=== PATIENT | female | born 1985 | race Caucasian/White ===

== ENCOUNTER 2021-03-18 12:37 | Inpatient (IN) | payer MEDICAID, SELFPAY ==
--- NOTE | ~2021-03-18 | CT_ITS ---
EXAMINATION: CT abdomen pelvis w con DATE: 03/18/2021 14:16 INDICATION: Abdominal pain TECHNIQUE: Computed tomography (CT) of the abdomen and pelvis was performed with 100 mL Omnipaque-350 intravenous contrast. Automated exposure control and iterative reconstruction technique were employe d. The dose-length product was 265.53 mGy-cm. COMPARISON: None FINDINGS: Lung bases are clear. Heart size is normal. No pericardial or pleural effusion. Small sliding-type hi atal hernia. Focal hepatic steatosis along the ligamentum teres. Gallbladder, spleen, pancreas, bilat eral adrenal glands and right kidney are normal. Subcentimeter low-attenuation likely cyst at the low er pole of the left kidney which is too small to definitively characterize. Diffuse colonic wall thic kening consistent with mild pancolitis could be infectious, inflammatory or less likely ischemic in e tiology. Small bowel anastomotic suture line in the anterior right hemipelvis. No bowel obstruction. Additional suture line likely related to appendectomy at the tip of the cecum. 4.8 cm simple appearin g fluid attenuation left adnexal cyst. Decompressed bladder, anteverted uterus and right adnexa are u nremarkable. No free intraperitoneal gas or fluid. No pathologically enlarged abdominal or pelvic lym phadenopathy. Bones are unremarkable. IMPRESSION: 1. Diffuse colonic wall thickening consistent with pancolitis which could be infectious, inflammatory or less likely ischemic in etiology. 2. 4.8 cm left adnexal cyst. Would recommend 6-8 week follow-up pelvic ultrasound. 3. Small sliding-type hiatal hernia. Reviewed, dictated and finalized at location A. IMPRESSION: 1. Diffuse colonic wall thickening consistent with pancolitis which could be in fectious, inflammatory or less likely ischemic in etiology. 2. 4.8 cm left adnexal cyst. Would recommend 6-8 week follow-up pelvic ultrasou nd. 3. Small sliding-type hiatal hernia.
[2021-03-18 12:45] VITALS: BP 109/71; PULSE 54; RESP 17; TEMP 36.3; O2SAT 99
--- NOTE | 2021-03-18 12:48 | ECG_ITS ---
Measurements Intervals [place] Rate: 44 P: 66 HI: 150 QRS: 71 QRSD: 85 T: 52 QT: 501 QTc: 430 Interpretive Statements SINUS BRADYCARDIA WITH MARKED SINUS ARRHYTHMIA DELAYED PRECORDIAL R/S TRANSITION BASELINE ARTIFACT- II, III, AVR, AVL, AVF, V1-V6 ABNORMAL ECG Electronically Signed On 03-18-2021 13:17:52 CDT by Satinder Garcia D.O.
[2021-03-18 12:59] LABS: Basophils Percent Auto 0.2 % (0.2-1.2); Eosinophils Absolute Auto 0.1 K/mm3 (0-0.3); Eosinophils Percent Auto 0.3 % (0-4.4); Hematocrit 43.6 % (37.0-47.0); Hemoglobin 14.4 g/dL (12.0-15.0); Immature Granulocyte Absolute 0.07 K/mm3 (0.00-0.031); Immature Granulocyte Percent A 0.4 % (0-0.5); Lymphocytes Absolute Auto 2.16 K/mm3 (0.9-3.2); Lymphocytes Percent Auto 12.6 % (18.3-44.2); Mean Corpuscular Hemoglobin 28.6 pg (26-34); Mean Corpuscular Volume 86.7 fl (80-100); Mean Platelet Volume 9.7 fl (7.4-10.4); Monocytes Absolute Auto 1.2 K/mm3 (0.1-0.6); Neutrophils Absolute Auto 13.7 K/mm3 (1.3-6.7); Neutrophils Percent Auto 79.5 % (45.5-73.1); Platelet Count Result 338 k/mm3 (150-375); Red Blood Count 5.03 M/mm3 (4.2-5.4); White Blood Count 17.2 K/mm3 (4.5-10.0)
[2021-03-18 13:12] LABS: Alanine Aminotransferase 18 U/L (4-35); Albumin Level 4.7 g/dL (3.5-5.1); Alkaline Phosphatase 80 U/L (38-126); Anion Gap 9 mmol/L (8-16); Aspartate Amino Transferase 24 U/L (14-36); Bilirubin,Total 0.6 mg/dL (0.2-1.3); Blood Urea Nitrogen 11 mg/dL (7-17); Calcium 9.2 mg/dL (8.4-10.2); Carbon Dioxide 25 mmol/L (22-30); Chloride 104 mmol/L (98-107); Estimated CRCL calculation 67 ml/min; Estimated Glomerular Filt Rate > 60; Glucose 142 mg/dL (65-105); Lipase 169 U/L (23-300); Potassium 3.7 mmol/L (3.4-5.0); Sodium 138 mmol/L (137-145)
--- NOTE | 2021-03-18 13:29 | ED.GENADULT ---
HPI - General Adult General Chief complaint: Nausea/Vomiting/Diarrhea Stated complaint: vomiting Source: patient History of Present Illness HPI narrative: Patient is a 35 y/o female complaining of generalized abdominal pain starting 3 days ago. She describes her pain as sharp and rates it as 10/10. There is no pain radiation, no alleviating or exacerbating factor. She has vomiting and diarrhea. She states that she had intussusception a few months ago at outside hospital. Related Data Home Medications Medication Instructions Recorded Confirmed Unable to Obtain Home Medications 03/18/21 03/18/21 Allergies Allergy/AdvReac Type Severity Reaction Status Date / Time No Known Allergies Allergy Verified 03/18/21 13:32 Review of Systems Constitutional: Constitutional: Denies chills, Denies fever(s), Denies headache(s) and Denies weakness Eyes: Eyes: Denies blurry vision ENT: Denies headache(s) and Denies neck pain Cardiovascular: Cardiovascular: Denies chest pain and Denies dyspnea Respiratory: Respiratory: Denies cough and Denies dyspnea Gastrointestinal: Gastrointestinal: Reports abdominal pain, Reports diarrhea, Reports nausea and Reports vomiting Genitourinary: Genitourinary: Denies hematuria and Denies dysuria Musculoskeletal: Musculoskeletal: Denies back pain and Denies neck pain Neurologic: Denies headache(s) and Denies weakness [facility] Social History Social History Gender identity (if verbalized by the patient): Female Exam Const: General: no acute distress and well developed Orientation/consciousness: oriented to person, oriented to place, oriented to time and patient oriented x3 HENMT: Head: normocephalic Ears: external ears normal General nose exam: Normal external nose present Eyes: General: appearance normal, both eyes and all related structures Conjunctivae: conjunctivae normal Neck: Neck: normal visual inspection and full ROM Chest: Chest palpation & inspection: normal inspection of the chest and no tenderness Resp: Effort & Inspection: normal respiratory effort Auscultation: clear to auscultation bilaterally Cardio: Rate: regular rate Rhythm: regular rhythm GI: GI Palp: No abdominal tenderness and Yes Soft to palpation Skin: General skin exam: normal color and turgor normal Neuro: General: oriented to person, oriented to place, oriented to time and patient oriented x3 Cognition (Neuro): normal cognition Extrem: General: normal to inspection, full ROM and no pedal edema Psych: Appearance: grossly normal Mental Status: mental status grossly normal Affect: normal affect Course Consultations Consultation #1: Discussed with UNIQUE Bedolla, who agrees to admit. Date: 03/18/21 Time: 15:13 Vital Signs Vital signs: Vital Signs Temperature 36.3 C L 03/18/21 12:45 Pulse Rate 54 L 03/18/21 12:45 Respiratory Rate 17 03/18/21 12:45 Blood Pressure 109/71 03/18/21 12:45 Pulse Oximetry 99 03/18/21 12:45 Temperature 36.3 C L 03/18/21 12:45 Pulse Rate 49 L 03/18/21 15:00 Respiratory Rate 18 03/18/21 15:00 Blood Pressure 116/71 03/18/21 15:00 Pulse Oximetry 100 03/18/21 15:00 Medical Decision Making Vital Signs Vital Signs: Vital Signs Temperature 36.3 C L 03/18/21 12:45 Pulse Rate 54 L 03/18/21 12:45 Respiratory Rate 17 03/18/21 12:45 Blood Pressure 109/71 03/18/21 12:45 Pulse Oximetry 99 03/18/21 12:45 Temperature 36.3 C L 03/18/21 12:45 Pulse Rate 49 L 03/18/21 15:00 Respiratory Rate 18 03/18/21 15:00 Blood Pressure 116/71 03/18/21 15:00 Pulse Oximetry 100 03/18/21 15:00 Lab Data Result diagrams: 03/18/21 12:53 03/18/21 12:53 Labs: Lab Results 03/18/21 03/18/21 03/18/21 Range/Units 12:53 12:53 14:00 WBC 17.2 H (4.5-10.0) K/mm3 RBC 5.03 (4.2-5.4) M/mm3 Hgb 14.4 (12.0-15.0) g/dL Hct 43.6 (37.0-47.0)
[2021-03-18] MEDS: METOCLOPRAMIDE HCL INJ 10 MG/2 ML VIAL IV PUSH (13:34)
[2021-03-18] MEDS: SODIUM CHLORIDE 0.9% IV 1,000 ML 999 ML IV CONT (13:34)
[2021-03-18] MEDS: KETOROLAC 30 MG/ML VIAL (*BKC) IV PUSH (13:35)
--- NOTE | 2021-03-18 13:39 | PC.NURSE ---
Pt unable to void. IV initiated. Pt poor historian and is unable to provide complete medications or a pharmacy.
--- NOTE | 2021-03-18 14:06 | PC.NURSE ---
Pt undid her IVF and walked to bathroom unassisted, states I have to go! . Note that the site is bleeding profusely. Pt had undid the line and removed the prn on the j-loop. Pt argumentative, states I was going to shit myself! . Attempt to calm pt. Requests multiple times for additional pain medications. Explained that the pain medication was given less than 10 minutes ago and have to give it time to work. Pt becomes angry, yelling let me talk to the doctor. I can't wait. It's going to kill me .
--- NOTE | 2021-03-18 14:22 | PC.NURSE ---
Pt returns from CT, per vp information technology pt refuses to go back on the monitor, and throws the cords at the tech.
--- NOTE | 2021-03-18 14:27 | PC.NURSE ---
Pt called to room again regarding wanting more pain medicaton. Call received from Ernst in lab, states that the urine has spilled all over the bag and she is unable to do either test.
[2021-03-18] MEDS: MORPHINE SULFATE (*CRX) 4 MG/ML INJ IV PUSH ×3 (14:55→22:26)
[2021-03-18] MEDS: metroNIDAZOLE 500 MG/ISO 100ML 500 MG/100 ML BAG 100 MG IVPB (14:57)
[2021-03-18 15:00] VITALS: BP 116/71; PULSE 49; RESP 18; O2SAT 100
--- NOTE | 2021-03-18 15:15 | PC.NURSE ---
Admit orders received, awaiting bed assignment. Pt made aware.
[2021-03-18] MEDS: CIPROFLOXACIN 400 MG/D5W 200ML 200 ML 200 MG IVPB (15:52)
--- NOTE | 2021-03-18 15:56 | PC.NURSE ---
Called to pt room, states is needing more pain medication. Dr. Genao made aware. Admit orders received, awaiting bed assignment.
[2021-03-18] MEDS: DICYCLOMINE HCL INJ 20 MG/2 ML VIAL IM (16:14)
--- NOTE | 2021-03-18 16:17 | PC.NURSE ---
Pt given med IM for continued pain. Pt states so I guess I'm not getting any more medicine for pain , explained how bentyl works and that it should be effective for pain. Pt rolls over and does not respond further. Explained will attempt to get patient to her room aniyah.
--- NOTE | 2021-03-18 16:30 | PM.IMHP ---
H&P: HPI History of Present Illness Date/Time: 03/18/21 16:30 Chief Complaint: Abdominal pain. Narrative: This is a 35-year-old female with reported history of intussusception several months ago who presented to the emergency department earlier today via private vehicle with complaints of abdominal pain for the last 3 days. She reports diffuse, sharp abdominal pain that does not radiate. At its worst she rates the pain 10/10 and she gives no significant aggravating factors. Associated symptoms include vomiting and diarrhea. Her symptoms improved somewhat with anxiety lytics and hot showers. CT of the abdomen and pelvis done in the emergency department today demonstrated najera colitis and with further questioning it sounds as though she may have had colitis previously and was also hospitalized in [place], [place] about 3 months ago with intussusception which resolved with conservative treatment. No personal or family history of inflammatory bowel disease. No recent travel, antibiotic use, or sick contacts. No fever, chills, or sweats. She also denies chest pain, shortness of breath, hematemesis, melena, and hematochezia. Of note, she does admit to smoking at least 1 blunt per day for many years though she has never been diagnosed with cannabinoid hyperemesis. Review of Systems Review of Systems: Narrative: Twelve systems were reviewed with pertinent positives and negatives as per HPI. She denies sinus congestion, rhinorrhea, otalgia, and odynophagia. No cough or shortness of breath. She has not had a period in 2 to 3 months and this is somewhat concerning to her; bedside test in the emergency department today was negative. She does have a history of ovarian cysts and was noted to have a left adnexal mass on imaging today. No history of malignancy. Weight has remained stable. No dysuria. She has a history of opiate addiction and abuse to pain pills for quite some time. She is treated with Suboxone but has not had that for approximately 1 week. Except as documented, all other systems were reviewed and are negative. [facility] Past Medical History Medical History Anxiety Cannabis abuse, daily use Depression Intussusception Hospitalized at [facility] in [place], [place] in early 2020. Pelvic inflammatory disease Tobacco use Surgical History Surgical History (Updated 03/18/21 @ 22:21 by Chioma Springer PA-C) History of exploratory laparotomy Family History Family History Other No known health problems Social History Social History (Updated 03/18/21 @ 22:23 by Chioma Springer PA-C) Social History: The patient lives in [place] but frequently stays with her boyfriend in the area. She smokes about half a pack of cigarettes per day and smokes 1 blunt per day. Drinks perhaps 2 alcoholic beverages a week. No illicit substance use. Formally abused prescription pain medication. Meds Home Medications and Allergies Home Medications Medication Instructions Recorded Confirmed Type trazodone 150 mg HS 03/18/21 03/18/21 History Allergies Allergy/AdvReac Type Severity Reaction Status Date / Time No Known Allergies Allergy Verified 03/18/21 17:45 Vital Signs Vital Signs - 24 hr 03/18/21 12:45 03/18/21 15:00 Temperature 97.4 F L Pulse Rate 54 L 49 L Respiratory Rate 17 18 Blood Pressure 109/71 116/71 Pulse Oximetry 99 100 Exam Narrative: Exam Narrative: General: Mildly ill-appearing female sitting up in bed. Weight: 71.3 kilograms. BMI: 27.0. HEENT: Normocephalic, atraumatic. PERRL, EOMI. Sclerae anicteric. Tacky mucous membranes. Neck: Supple. Respiratory: Lungs are clear to auscultation bilaterally. Cardiovascular: Regular rate and rhythm with S1-S2. Gastrointestinal: Abdomen is soft and nondistended with positive bowel sounds. She is diffusely tender to palpation throughout the abdomen. Demo
--- NOTE | 2021-03-18 16:35 | PC.NURSE ---
Pt has not voided anymore for a urine collection.
[2021-03-18 16:53] VITALS: BMI 26.9
--- NOTE | 2021-03-18 16:55 | ADMGEN ---
This patient, Mary Carl, was admitted to Medical Room 343-01. Patient/family oriented to hospital policies and general routines including ID bracelet, bed and alarms, visiting hours, pain management, procedures, bathroom and other care routines, personal items, smoking policy, room service/diet, and visiting hours. Information on how to activate the Rapid Response Team has been discussed. Patient/Family are encouraged to report perceived risks to care and to ask questions if they do not understand what they are told or what they should do.
[2021-03-18] MEDS: SODIUM CHLORIDE 0.9% IV 1,000 ML 125 ML IV CONT (16:57)
[2021-03-18 17:36] VITALS: BP 123/64; PULSE 51; RESP 16; TEMP 36.1; O2SAT 100
[2021-03-18] MEDS: ONDANSETRON INJ 4 MG/2 ML VIAL IV PUSH (17:41)
[2021-03-18 18:07] VITALS: PULSE 60; RESP 18; O2SAT 97
[2021-03-18 20:37] VITALS: BP 119/67; PULSE 62; RESP 20; TEMP 36.7; O2SAT 99
[2021-03-18] MEDS: LORazepam INJ (*CRX) 2 MG/ML VIAL 0.5 MG IV PUSH (20:42)
[2021-03-18] MEDS: NICOTINE (*PBKC) 14 MG PATCH 1 PATCH TRANSDERM (22:26)
[2021-03-18] MEDS: CAPSAICIN 0.025% CREAM 60 GM TUBE 1 APPLIC TOPICAL (23:14)
[2021-03-19] MEDS: CIPROFLOXACIN 400 MG/D5W 200ML 200 ML 200 MG IVPB ×2 (03:00→15:18)
[2021-03-19 06:12] LABS: Hematocrit 37.7 % (37.0-47.0); Hemoglobin 12.7 g/dL (12.0-15.0); Mean Corpuscular HGB Conc 33.7 g/dl (32-36); Mean Corpuscular Hemoglobin 28.4 pg (26-34); Mean Corpuscular Volume 84.3 fl (80-100); Mean Platelet Volume 9.9 fl (7.4-10.4); Platelet Count Result 295 k/mm3 (150-375); Red Blood Count 4.47 M/mm3 (4.2-5.4); Red Cell Distribution Width 15.8 % (11.5-14.5); White Blood Count 20.6 K/mm3 (4.5-10.0)
[2021-03-19] MEDS: MORPHINE SULFATE (*CRX) 4 MG/ML INJ IV PUSH ×5 (06:20→20:47)
[2021-03-19] MEDS: CAPSAICIN 0.025% CREAM 60 GM TUBE 1 APPLIC TOPICAL ×2 (06:20→11:37)
[2021-03-19 06:22] VITALS: BP 116/70; PULSE 60; RESP 14; TEMP 36.9; O2SAT 100
[2021-03-19 06:29] LABS: Anion Gap 5 mmol/L (8-16); Blood Urea Nitrogen 12 mg/dL (7-17); CRP < 0.5 mg/dL (<1.0); Calcium 8.5 mg/dL (8.4-10.2); Carbon Dioxide 24 mmol/L (22-30); Chloride 108 mmol/L (98-107); Estimated CRCL calculation 95 ml/min; Estimated Glomerular Filt Rate > 60; Glucose 107 mg/dL (65-105); Magnesium 1.6 mg/dL (1.6-2.3); Potassium 3.4 mmol/L (3.4-5.0); Sodium 137 mmol/L (137-145)
[2021-03-19] MEDS: NICOTINE (*PBKC) 14 MG PATCH 1 PATCH TRANSDERM (09:00)
[2021-03-19] MEDS: SODIUM CHLORIDE 0.9% IV 1,000 ML 75 ML IV CONT (09:02)
[2021-03-19] MEDS: ONDANSETRON INJ 4 MG/2 ML VIAL IV PUSH ×2 (10:35→16:50)
--- NOTE | 2021-03-19 12:29 | PM.IMPN ---
Progress Note: A&P Assessment and Plan (1) Colitis: Code(s): K52.9 - Noninfective gastroenteritis and colitis, unspecified Status: Acute Assessment and Plan: Pancolitis on imaging, infectious versus inflammatory Continue with antibiotics stool cultures pending GI consulted Records requested from [facility] for review Continue supportive care with IVF, antiemetics and analgesics as needed (2) Adnexal mass: Code(s): N94.89 - Other specified conditions associated with female genital organs and menstrual cycle Status: Acute Assessment and Plan: 4.8 centimeter left adnexal mass noted on CT Follow-up ultrasound in 6 to 8 weeks as an outpatien. (3) Tobacco use: Code(s): Z72.0 - Tobacco use Status: Acute Assessment and Plan: Continue with nicotine patch. (4) Cannabis abuse, daily use: Code(s): F12.10 - Cannabis abuse, uncomplicated Status: Acute Assessment and Plan: ?cannabinoid hyperemesis syndrome-->reports cycles of abdominal pain with vomiting, improved with hot showers Cessation advised Subjective Date/time seen: 03/19/21 12:29 Pt seen and evaluated; labs and diagnostic reports reviewed; pt complains of right sided abdominal pain 6-07/08; endorses N/V Review of Systems Review of Systems: All systems reviewed & are unremarkable except as noted in HPI and below Exam Narrative: Exam Narrative: General: NAD, sitting up in bed. HEENT: Normocephalic, atraumatic. EOMI. Sclerae anicteric. Neck: Supple. Respiratory: Lungs are clear to auscultation bilaterally. Cardiovascular: Regular rate and rhythm with S1-S2. Gastrointestinal: Abdomen is soft and nondistended with positive bowel sounds. She is diffusely tender to palpation throughout the abdomen. Demonstrates voluntary guarding but no rebound tenderness. Skin: Warm and dry. No rash or lesions on limited exam. Extremities: No cyanosis, clubbing, or edema. Radial and pedal pulses intact. Neurological: Alert. Cranial nerves 2-12 are grossly intact. No gross focal deficits to casual conversation. Psychiatric: Cooperative. Appropriate mood and affect. Objective Data Vital Signs Vital Signs: Vital Signs - 24 hr 03/18/21 12:45 03/18/21 15:00 03/18/21 17:36 Temperature 36.3 C L 36.1 C L Pulse Rate 54 L 49 L 51 L Respiratory Rate 17 18 16 Blood Pressure 109/71 116/71 123/64 Pulse Oximetry 99 100 100 03/18/21 18:07 03/18/21 20:37 03/19/21 06:22 Temperature 36.7 C 36.9 C Pulse Rate 60 62 60 Respiratory Rate 18 20 14 Blood Pressure 119/67 116/70 Pulse Oximetry 97 99 100 Intake/Output Intake/Output: Intake & Output 03/16/21 03/17/21 03/18/21 03/19/21 23:59 23:59 23:59 23:59 Intake Total 1440 1550 Output Total 250 Balance 1440 1300 Meds/Results Medications: Active Medications Generic Name Dose Route Start Last Admin Trade Name Freq PRN Reason Stop Dose Admin Capsaicin 1 applic 03/19/21 00:00 03/19/21 11:37 Capsaicin 0.025% Cream 60 Gm Tube TOPICAL 1 applic Q6HR ROSIO Administration Ciprofloxacin/Dextrose 200 mls @ 200 mls/hr 03/19/21 03:00 03/19/21 04:00 Cipro 400 Mg/D5w 200 Ml IVPB Infused Q12H ROSIO Infusion Sodium Chloride 1,000 mls @ 75 mls/hr 03/18/21 15:15 03/19/21 09:02 Normal Saline Iv IV CONT 75 mls/hr .[id number] ROSIO Administration Piperacillin/Tazobactam/Dextrose 3.375 gm in 50 mls @ 100 mls/hr 03/18/21 18:00 03/19/21 11:37 Zosyn 3.375 Gm/D5w 50ml Pm IVPB 100 mls/hr Q6H ROSIO Administration Morphine Sulfate 4 mg 03/18/21 17:09 03/19/21 10:35 Morphine Sulfate (*Crx) 4 Mg/Ml Inj IV PUSH 4 mg Q4H PRN Administration Pain Rated 7-10 Nicotine 1 patch 03/18/21 22:00 03/19/21 09:00 Nicotine (*Pbkc) 14 Mg Patch TRANSDERM 1 patch QAM ROSIO Administration Ondansetron HCl 4 mg 03/18/21 17:09 03/19/21 10:35 Ondansetron Inj 4 Mg/2 Ml Vial IV PUSH 4 mg
[2021-03-19 13:04] LABS: Basophils Percent Auto 0.1 % (0.2-1.2); Eosinophils Percent Auto 0.1 % (0-4.4); Hemoglobin 12.6 g/dL (12.0-15.0); Immature Granulocyte Absolute 0.07 K/mm3 (0.00-0.031); Immature Granulocyte Percent A 0.4 % (0-0.5); Lymphocytes Absolute Auto 2.06 K/mm3 (0.9-3.2); Lymphocytes Percent Auto 11.3 % (18.3-44.2); Mean Corpuscular HGB Conc 33.2 g/dl (32-36); Mean Corpuscular Hemoglobin 28.6 pg (26-34); Mean Corpuscular Volume 86.2 fl (80-100); Mean Platelet Volume 9.8 fl (7.4-10.4); Monocytes Absolute Auto 1.8 K/mm3 (0.1-0.6); Monocytes Percent Auto 9.8 % (2.6-8.5); Neutrophils Absolute Auto 14.3 K/mm3 (1.3-6.7); Neutrophils Percent Auto 78.3 % (45.5-73.1); Platelet Count Result 298 k/mm3 (150-375); Red Blood Count 4.41 M/mm3 (4.2-5.4); Red Cell Distribution Width 16.1 % (11.5-14.5); White Blood Count 18.2 K/mm3 (4.5-10.0)
[2021-03-19 13:12] LABS: Potassium 3.2 mmol/L (3.4-5.0)
[2021-03-19 13:20] LABS: Anion Gap 7 mmol/L (8-16); Blood Urea Nitrogen 10 mg/dL (7-17); Calcium 8.4 mg/dL (8.4-10.2); Carbon Dioxide 21 mmol/L (22-30); Chloride 109 mmol/L (98-107); Estimated CRCL calculation 84 ml/min; Estimated Glomerular Filt Rate > 60; Glucose 119 mg/dL (65-105); Sodium 137 mmol/L (137-145)
[2021-03-19 15:25] VITALS: BP 104/67; PULSE 96; RESP 16; TEMP 36.3; O2SAT 98
--- NOTE | 2021-03-19 15:49 | WPDGICN ---
Assessment and Plan Assessment and plan (1) Colitis: Code(s): K52.9 - Noninfective gastroenteritis and colitis, unspecified Status: Acute Assessment and Plan: she claims that had colitis in the past, similar presentation again. Will proceed with colonoscopy to assess if IBD, infections, ischemic, etc she is on antibiotics if she has more diarrhea then will order stool samples crp normal (2) Nausea and vomiting in adult: Code(s): R11.2 - Nausea with vomiting, unspecified Status: Acute Assessment and Plan: improved but also noted that she uses marijuana- ? hyperemesis egd with bx supportive care and antiemetics prn (3) Adnexal mass: Code(s): N94.89 - Other specified conditions associated with female genital organs and menstrual cycle Status: Acute Assessment and Plan: will need follow-up with rehabilitation worker, she says that years ago required surgery for large cyst (4) Cannabis abuse, daily use: Code(s): F12.10 - Cannabis abuse, uncomplicated Status: Acute (5) Abdominal pain: Code(s): R10.9 - Unspecified abdominal pain Status: Acute Assessment and Plan: probably from colitis, assess with colonoscopy (6) Leukocytosis: Code(s): D72.829 - Elevated white blood cell count, unspecified Status: Acute GI Consult Note Consult date/time: 03/19/21 15:49 Reason for consult: nausea, vomiting and colitis HPI: Mary Carl is a 35 year old female with history of recurrent SBO ever since had surgery for large ovarian cyst surgery and PID when she was 20yo, normally treated medically but finally in 2011 had surgery for small bowel obstruction (no records), around that time also had a colonoscopy, apparently no major findings per patient. She says that about 1.5 year ago diagnosed with colitis and then about 3-4 months ago with intussusception again treated medically. She came here with new onset of diffuse abdominal pain for the last 3 days, described as sharp pain, severe and also nausea and vomiting with diarrhea. She says that boyfriend also was sick. She also smokes marijuana and sometimes takes hot showers if she gets sick. CT of the abdomen and pelvis reviewed and showed najera colitis, 4.8 cm left adnexal cyst and small sliding-type hiatal hernia.. She says that at baseline she will use restroom every other day, no blood in stools. WBC 20k, normal renal function, liver enzymes, lipase and crp. She is not having any more diarrhea. Started on iv antibiotics, still with pain. Review of Systems Constitutional: Constitutional: Denies lethargy Eyes: Eyes: Reports no additional eye complaints ENT: Reports Normal hearing present Cardiovascular: Cardiovascular: Denies chest pain Respiratory: Respiratory: Denies dyspnea Gastrointestinal: Gastrointestinal: Reports abdominal pain, Reports nausea and Reports vomiting Genitourinary: Genitourinary: Denies hematuria Musculoskeletal: Musculoskeletal: Denies neck pain Integumentary/Breasts: Skin/Breast: Denies dry skin Neurologic: Denies headache(s) Psychiatric: Psychiatric: Reports no additional psychiatric complaints PMFSH Past Medical History Medical History Abdominal pain Anxiety Cannabis abuse, daily use Depression Intussusception Hospitalized at [facility] in [place], [place] in early 2020. Leukocytosis Nausea and vomiting in adult Pelvic inflammatory disease Tobacco use Surgical History Surgical History (Updated 03/18/21 @ 22:21 by Chioma Springer PA-C) History of exploratory laparotomy Family History Family History Other No known health problems Social History Social History (Updated 03/18/21 @ 22:23 by Chioma Springer PA-C) Social History: The patient lives in [place] but frequently stays with her boyfriend in the area. She smokes about half a pack of cigarettes per day and smokes 1 blunt
[2021-03-19] MEDS: BISACODYL 5 MG TABLET EC 20 MG PO (16:41)
[2021-03-19] MEDS: POTASSIUM CHLORIDE 20 MEQ PACKET (FOR LIQUID) 40 MEQ PO (16:42)
[2021-03-19] MEDS: METOCLOPRAMIDE HCL INJ 10 MG/2 ML VIAL IV PUSH (18:13)
[2021-03-19] MEDS: LORazepam INJ (*CRX) 2 MG/ML VIAL 0.5 MG IV PUSH (19:40)
[2021-03-19 20:42] VITALS: BP 114/86; PULSE 73; RESP 17; TEMP 36.4; O2SAT 99
[2021-03-19] MEDS: MAGNESIUM CITRATE 300 ML BTL PO (20:48)
[2021-03-20] VITALS (7 sets, daily range): BP systolic 92–120; BP diastolic 48–78; PULSE 43–89; RESP 14–28; TEMP 36.4–37.6; O2SAT 96–100
[2021-03-20] MEDS: MORPHINE SULFATE (*CRX) 4 MG/ML INJ IV PUSH ×7 (00:34→21:38)
[2021-03-20] MEDS: CIPROFLOXACIN 400 MG/D5W 200ML 200 ML 200 MG IVPB (03:08)
[2021-03-20 04:58] LABS: IFOB Positive Control Positive; Immunochemical Fecal Occult Bl Negative (N)
[2021-03-20] MEDS: NICOTINE (*PBKC) 14 MG PATCH 1 PATCH TRANSDERM (09:22)
[2021-03-20] MEDS: LORazepam INJ (*CRX) 2 MG/ML VIAL 0.25 MG IV PUSH ×2 (09:41→17:44)
--- NOTE | 2021-03-20 11:49 | WPDANESEPPF ---
Anes - Initial Pre Proc Eval Procedure: Operation Date: 03/20/21 12:30 Proposed Procedures p Esophagogastroduodenoscopy & Colonoscopy - Henri Goldstein MD Date/Time: 03/20/21 11:49 Surgeon: Ruth Eagle MD Pre Op Diagnosis: Colitis Patient Data Age: 35 Gender: F Height: 5 ft 4 in Weight: 71.3 kg Last Vital Signs Temp 36.6 C 03/20/21 06:09 Pulse 80 03/20/21 06:09 Resp 14 03/20/21 06:09 BP 120/68 03/20/21 06:09 Pulse Ox 96 03/20/21 06:09 Allergies Allergy/AdvReac Type Severity Reaction Status Date / Time No Known Allergies Allergy Verified 03/18/21 17:45 Home Medications Medication Instructions Recorded Confirmed Type trazodone 150 mg HS 03/18/21 03/18/21 History Laboratory Tests 03/18/21 03/18/21 03/19/21 14:00 14:00 12:54 WBC 18.2 K/mm3 H K/mm3 (4.5-10.0) RBC 4.41 M/mm3 M/mm3 (4.2-5.4) Hgb 12.6 g/dL g/dL (12.0-15.0) Hct 38.0 % % (37.0-47.0) MCV 86.2 fl fl (80-100) MCH 28.6 pg pg (26-34) MCHC 33.2 g/dl g/dl (32-36) RDW 16.1 % H % (11.5-14.5) Plt Count 298 k/mm3 k/mm3 (150-375) MPV 9.8 fl fl (7.4-10.4) Immature Gran % (Auto) 0.4 % % (0-0.5) Neut % (Auto) 78.3 % H % (45.5-73.1) Lymph % (Auto) 11.3 % L % (18.3-44.2) [place] % (Auto) 9.8 % H % (2.6-8.5) Eos % (Auto) 0.1 % % (0-4.4) Baso % (Auto) 0.1 % L % (0.2-1.2) Lymph # (Auto) 2.06 K/mm3 K/mm3 (0.9-3.2) [place] # (Auto) 1.8 K/mm3 H K/mm3 (0.1-0.6) Eos # (Auto) 0.0 K/mm3 K/mm3 (0-0.3) Baso # (Auto) 0.0 K/mm3 K/mm3 (0.0-0.1) Abs Immat Gran (auto) 0.07 K/mm3 H K/mm3 (0.00-0.031) Absolute Neuts (auto) 14.3 K/mm3 H K/mm3 (1.3-6.7) Absolute Nucleated RBC 0.0 K/mm3 K/mm3 (0.0-0.012) Nucleated RBC % 0.0 % % (0.0-0.2) Sodium Potassium Chloride Carbon Dioxide Anion Gap BUN Creatinine Estim Creat Clear Calc Estimated GFR Glucose Calcium Urine Color Cancelled Urine Appearance Cancelled Urine pH Cancelled Ur Specific [place] Cancelled Urine Protein Cancelled Urine Glucose (UA) Cancelled Urine Ketones Cancelled Ur Blood (Man) Cancelled Urine Nitrate Cancelled Urine Bilirubin Cancelled Urine Urobilinogen Cancelled Leukocyte Esterase Rfl Cancelled Urine RBC Cancelled Urine WBC Cancelled Urine WBC Clumps Cancelled Ur Squamous Epith Cells Cancelled Ur Transition Epith Cell Cancelled Ur Renal Epithelial Cell Cancelled Curt Biurate Crystals Cancelled Calcium Carbonate Cryst Cancelled Calcium Phosphate Cryst Cancelled Calcium Oxalate Crystal Cancelled Leucine Crystals Cancelled Cystine Crystals Cancelled Uric Acid Crystals Cancelled Triple Phos Crystals Cancelled Sulfonamide Crystals Cancelled Cholesterol Crystals Cancelled Talc Crystals Cancelled Tyrosine Crystals Cancelled Hippuric Acid Crystals Cancelled Other Crystals Cancelled Amorphous Sediment Cancelled Other Sediment Cancelled Urine Bacteria Cancelled Cellular Casts Cancelled Epithelial Casts Cancelled Fatty Casts Cancelled Hyaline Casts Cancelled Granular Casts Cancelled Waxy Casts Cancelled RBC Casts Cancelled WBC Casts Cancelled Urine Starch
[2021-03-20] MEDS: LACTATED RINGERS 1,000 ML 150 ML IV CONT (12:20)
[2021-03-20] MEDS: BENZOCAINE (*SP) 60 ML SPRAY CAN (HURRICAINE) 1 SPRAY MUCOUS MEM (12:29)
--- NOTE | 2021-03-20 12:46 | SUR.OPER ---
EGD START 1230, END 1234 COLONOSCOPY START 1237, END 1246
[2021-03-20] MEDS: POTASSIUM CHLORIDE 20 MEQ PACKET (FOR LIQUID) 40 MEQ PO (13:40)
[2021-03-20] MEDS: SODIUM CHLORIDE 0.9% IV 1,000 ML 75 ML IV CONT (13:40)
--- NOTE | 2021-03-20 15:39 | PM.IMPN ---
Progress Note: A&P Assessment and Plan (1) Colitis: Code(s): K52.9 - Noninfective gastroenteritis and colitis, unspecified Status: Acute Assessment and Plan: Pancolitis on imaging, infectious versus inflammatory Continue with antibiotics stool cultures pending GI following, recommendations appreciated Records requested from [facility] for review Continue supportive care with IVF, antiemetics and analgesics as needed Plan for colonoscopy (2) Adnexal mass: Code(s): N94.89 - Other specified conditions associated with female genital organs and menstrual cycle Status: Acute Assessment and Plan: 4.8 centimeter left adnexal mass noted on CT Follow-up ultrasound in 6 to 8 weeks as an outpatient (3) Tobacco use: Code(s): Z72.0 - Tobacco use Status: Acute Assessment and Plan: Continue with nicotine patch. (4) Cannabis abuse, daily use: Code(s): F12.10 - Cannabis abuse, uncomplicated Status: Acute Assessment and Plan: ?cannabinoid hyperemesis syndrome-->reports cycles of abdominal pain with vomiting, improved with hot showers Cessation advised (5) Anxiety: Code(s): F41.9 - Anxiety disorder, unspecified Status: Acute Assessment and Plan: Will give Xanax prn Pt advised to f/u o/p at d/c Subjective Date/time seen: 03/20/21 15:39 Pt seen and evaluated; pain uncontrolled and per nursing staff pt has been anxious; pt tells me she has a history of anxiety and has been treated inpatient at [facility] Review of Systems Review of Systems: All systems reviewed & are unremarkable except as noted in HPI and below Exam Narrative: Exam Narrative: General: NAD, sitting up in bed. HEENT: Normocephalic, atraumatic. EOMI. Sclerae anicteric. Neck: Supple. Respiratory: Lungs are clear to auscultation bilaterally. Cardiovascular: Regular rate and rhythm with S1-S2. Gastrointestinal: Abdomen is soft and nondistended with positive bowel sounds. She is diffusely tender to palpation throughout the abdomen. Demonstrates voluntary guarding but no rebound tenderness. Skin: Warm and dry. No rash or lesions on limited exam. Extremities: No cyanosis, clubbing, or edema. Radial and pedal pulses intact. Neurological: Alert. Cranial nerves 2-12 are grossly intact. No gross focal deficits to casual conversation. Psychiatric: Cooperative. Appropriate mood and affect. Objective Data Vital Signs Vital Signs: Vital Signs - 24 hr 03/19/21 20:42 03/20/21 06:09 03/20/21 12:03 Temperature 36.4 C 36.6 C 37.6 C Pulse Rate 73 80 79 Respiratory Rate 17 14 18 Blood Pressure 114/86 120/68 115/68 Pulse Oximetry 99 96 97 03/20/21 12:50 03/20/21 13:00 03/20/21 13:10 Temperature Pulse Rate 43 L 53 L 50 L Respiratory Rate 28 H 22 H 23 H Blood Pressure 92/64 L 108/78 114/73 Pulse Oximetry 100 100 100 Intake/Output Intake/Output: Intake & Output 03/17/21 03/18/21 03/19/21 03/20/21 23:59 23:59 23:59 23:59 Intake Total 1440 3330 350 Output Total 475 Balance 1440 2855 350 Meds/Results Medications: Active Medications Generic Name Dose Route Start Last Admin Trade Name Freq PRN Reason Stop Dose Admin Alprazolam 0.25 mg 03/20/21 12:18 Alprazolam (*Crx) 0.25 Mg Tablet PO BID PRN Anxiety Sodium Chloride 1,000 mls @ 75 mls/hr 03/18/21 15:15 03/20/21 13:40 Normal Saline Iv IV CONT 75 mls/hr .[id number] ROSIO Administration Lorazepam 0.25 mg 03/20/21 09:27 03/20/21 09:41 Lorazepam Inj (*Crx) 2 Mg/Ml Vial IV PUSH 0.25 mg BID PRN Administration Anxiety Metoclopramide HCl 10 mg 03/19/21 15:53 03/19/21 18:13 Metoclopramide Hcl Inj 10 Mg/2 Ml Vial IV PUSH 10 mg Q6HR PRN Administration Nausea And Vomiting Morphine Sulfate 4 mg 03/19/21 15:56 03/20/21 13:40 Morphine Sulfate (*Crx) 4 Mg/Ml Inj IV PUSH 4 mg Q3H PRN Administration Pain Rated 7-10
--- NOTE | 2021-03-20 15:54 | PM.DS ---
DS: Admitting Diagnosis Admitting Diagnosis Admitting Diagnosis: CVA DS: Discharge Diagnosis Discharge Diagnosis (1) Colitis: Code(s): K52.9 - Noninfective gastroenteritis and colitis, unspecified Status: Acute Assessment and Plan: Pancolitis on imaging, infectious versus inflammatory Continue with antibiotics stool cultures pending GI following, recommendations appreciated Records requested from [facility] for review Continue supportive care with IVF, antiemetics and analgesics as needed Plan for colonoscopy (2) Adnexal mass: Code(s): N94.89 - Other specified conditions associated with female genital organs and menstrual cycle Status: Acute Assessment and Plan: 4.8 centimeter left adnexal mass noted on CT Follow-up ultrasound in 6 to 8 weeks as an outpatient (3) Tobacco use: Code(s): Z72.0 - Tobacco use Status: Acute Assessment and Plan: Continue with nicotine patch. (4) Cannabis abuse, daily use: Code(s): F12.10 - Cannabis abuse, uncomplicated Status: Acute Assessment and Plan: ?cannabinoid hyperemesis syndrome-->reports cycles of abdominal pain with vomiting, improved with hot showers Cessation advised (5) Anxiety: Code(s): F41.9 - Anxiety disorder, unspecified Status: Acute Assessment and Plan: Will give Xanax prn Pt advised to f/u o/p at d/c DS: Summary Time Spent with Patient Time attestation: Total time spent providing and/or coordinating discharge services: Melissa Malin Exam Narrative: Exam Narrative: General: NAD, sitting up in bed. HEENT: Normocephalic, atraumatic. EOMI. Sclerae anicteric. Neck: Supple. Respiratory: Lungs are clear to auscultation bilaterally. Cardiovascular: Regular rate and rhythm with S1-S2. Gastrointestinal: Abdomen is soft and nondistended with positive bowel sounds. She is diffusely tender to palpation throughout the abdomen. Demonstrates voluntary guarding but no rebound tenderness. Skin: Warm and dry. No rash or lesions on limited exam. Extremities: No cyanosis, clubbing, or edema. Radial and pedal pulses intact. Neurological: Alert. Cranial nerves 2-12 are grossly intact. No gross focal deficits to casual conversation. Psychiatric: Cooperative. Appropriate mood and affect. DS: Data Data Completed and Pending Pending studies at discharge: Pending at discharge 03/20/21 12:48 Surgical [PTH] Routine Labs on day of discharge: Labs from last 24 hours 03/20/21 03/20/21 03/18/21 03:02 03:02 14:00 Urine Color Urine Appearance Urine pH Ur Specific [place] Urine Protein Urine Glucose (UA) Urine Ketones Ur Blood (Man) Urine Nitrate Urine Bilirubin Urine Urobilinogen Leukocyte Esterase Rfl Urine RBC Urine WBC Urine WBC Clumps Ur Squamous Epith Cells Ur Transition Epith Cell Ur Renal Epithelial Cell Cowan Biurate Crystals Calcium Carbonate Cryst Calcium Phosphate Cryst Calcium Oxalate Crystal Leucine Crystals Cystine Crystals Uric Acid Crystals Triple Phos Crystals Sulfonamide Crystals Cholesterol Crystals Talc Crystals Tyrosine Crystals Hippuric Acid Crystals Other Crystals Amorphous Sediment Other Sediment Urine Bacteria Cellular Casts Epithelial Casts Fatty Casts Hyaline Casts Granular Casts Waxy Casts RBC Casts WBC Casts Urine Starch Urine Mucus Urine Trichomonas Urine Yeast (Budding) Ur Oval Fat Bodies Stl Occult Blood (IFOB) Negative Urine Opiates Screen Cancelled Urine Methadone Screen Cancelled Ur Barbiturates Screen Cancelled Ur Phencyclidine Scrn Cancelled Ur Amphetamine Screen Cancelled U Benzodiazepines Scrn Cancelled Urine Cocaine Screen Cancelled U Cannabinoids Screen Cancelled Ova & Parasites Pending 03/18/21
--- NOTE | 2021-03-20 16:01 | PM.IMPN ---
Progress Note: A&P Assessment and Plan (1) Colitis: Code(s): K52.9 - Noninfective gastroenteritis and colitis, unspecified Status: Acute Assessment and Plan: Pancolitis on imaging, infectious versus inflammatory Continue with antibiotics stool cultures pending GI following, recommendations appreciated Records requested from [facility] for review Continue supportive care with IVF, antiemetics and analgesics as needed S/p EGD and colonoscopy, unremarakble (2) Adnexal mass: Code(s): N94.89 - Other specified conditions associated with female genital organs and menstrual cycle Status: Acute Assessment and Plan: 4.8 centimeter left adnexal mass noted on CT Recommended follow-up ultrasound in 6 to 8 weeks as an outpatient Will consult [employer] per pt request (3) Tobacco use: Code(s): Z72.0 - Tobacco use Status: Acute Assessment and Plan: Continue with nicotine patch (4) Cannabis abuse, daily use: Code(s): F12.10 - Cannabis abuse, uncomplicated Status: Acute Assessment and Plan: ?cannabinoid hyperemesis syndrome-->reports cycles of abdominal pain with vomiting, improved with hot showers Cessation advised (5) Anxiety: Code(s): F41.9 - Anxiety disorder, unspecified Status: Acute Assessment and Plan: Will give Xanax prn Pt advised to f/u o/p at d/c Subjective Date/time seen: 03/20/21 16:01 Pt seen and evaluated. Continues with abdominal pain, N/V Review of Systems Review of Systems: All systems reviewed & are unremarkable except as noted in HPI and below Psychiatric: Psychiatric: Denies confusion Exam Const: General: healthy appearing, comfortable, no acute distress and well developed; No confusion Orientation/consciousness: oriented to person, oriented to place, oriented to time, patient oriented x3 and No confusion HENMT: Head: normocephalic Ears: external ears normal General nose exam: Normal external nose present and Normal nares present Eyes: General: appearance normal, both eyes and all related structures Conjunctivae: conjunctivae normal Direct Ophthalmoscopy: No photophobia Neck: Neck: normal visual inspection, full ROM and no JVD Chest: Chest palpation & inspection: normal inspection of the chest and no tenderness Resp: Effort & Inspection: normal respiratory effort Auscultation: clear to auscultation bilaterally, no rales, no rhonchi and no wheezes Cardio: Rate: regular rate Rhythm: regular rhythm Heart sounds: no click, no murmurs and no rubs GI: Inspection: non-distended Auscultation: normal bowel sounds Skin: General skin exam: normal color and turgor normal Neuro: General: oriented to person, oriented to place, oriented to time, patient oriented x3 and No confusion Cranial nerves: Yes Normal hearing present Cognition (Neuro): normal cognition Speech: normal speech and No Abnormal speech present Motor exam (neuro): Normal motor muscle tone present throughout Extrem: General: normal to inspection, full ROM, no pedal edema and no calf tenderness Psych: Appearance: grossly normal Mental Status: mental status grossly normal Affect: normal affect Objective Data Vital Signs Vital Signs: Vital Signs - 24 hr 03/19/21 20:42 03/20/21 06:09 03/20/21 12:03 Temperature 36.4 C 36.6 C 37.6 C Pulse Rate 73 80 79 Respiratory Rate 17 14 18 Blood Pressure 114/86 120/68 115/68 Pulse Oximetry 99 96 97 03/20/21 12:50 03/20/21 13:00 03/20/21 13:10 Temperature Pulse Rate 43 L 53 L 50 L Respiratory Rate 28 H 22 H 23 H Blood Pressure 92/64 L 108/78 114/73 Pulse Oximetry 100 100 100 Intake/Output Intake/Output: Intake & Output 03/17/21 03/18/21 03/19/21 03/20/21 23:59 23:59 23:59 23:59 Intake Total 1440 3330 350 Output Total 475 Balance 1440 2855 350 Meds/Results Medications: Active Medications Generic Name Dose Route Start Last Admin Trade Name Freq
[2021-03-20] MEDS: ONDANSETRON INJ 4 MG/2 ML VIAL IV PUSH (17:44)
--- NOTE | 2021-03-20 18:29 | PC.NURSE ---
Pt having nausea. Pt seen by multiple staff members putting fingers in her mouth to vomit. Pt states it has to come out . Pt informed not to do that and that it is unnecessary and dangerous.
[2021-03-20] MEDS: ALPRAZolam (*CRX) 0.25 MG TABLET PO (21:45)
[2021-03-21] MEDS: MORPHINE SULFATE (*CRX) 4 MG/ML INJ IV PUSH ×3 (01:26→09:49)
[2021-03-21 05:35] VITALS: BP 107/57; PULSE 56; RESP 16; TEMP 36.4; O2SAT 95
[2021-03-21] MEDS: LORazepam INJ (*CRX) 2 MG/ML VIAL 0.25 MG IV PUSH (06:42)
--- NOTE | 2021-03-21 08:32 | WPDCN ---
Assessment and Plan Assessment and plan (1) Abdominal pain: Code(s): R10.9 - Unspecified abdominal pain Status: Acute (2) Pelvic pain: Code(s): R10.2 - Pelvic and perineal pain Status: Acute (3) Ovarian cyst: Code(s): N83.209 - Unspecified ovarian cyst, unspecified side Status: Acute Assessment and Plan: This patient is a 35-year-old female with pelvic pain, nausea vomiting, ovarian cysts. The cyst has been present since August. She is not appear to be in distress. Her abdomen is soft. We have asked for a pelvic ultrasound. It is pending. Patient is infiltrated and resection the cyst today. The operating Room does not have any availability today as she does not appear in distress and the pain has been present for many months. She should follow up as an outpatient and we can schedule surgery of she is interested having a laparoscopic resection the cyst. She does have a history of bowel obstruction in intra-abdominal adhesions. She has had help with this at [facility]. Perhaps, she should return to their care have it done there given the complexity possibly of the surgery. HPI Data of Consult Date/Time: 03/21/21 08:32 this patient is a 35-year-old multiparous female with history of ovarian cyst. She was admitted to the hospital through the ER for severe abdominal/pelvic pain. CT of the abdomen pelvis revealed a 5 cm ovarian cyst. Patient is nauseated and has been vomiting. She has had this pain since August. The pain is not temporally related to her menstrual cycle. Has regular menstrual cycle. She has pain with intercourse. She denies any fever or chills. She denies any abnormal vaginal discharge. Requesting Physician: Ruth Eagle MD Primary Care Provider: [facility] Consult Narrative Narrative: Mary Carl is a 35 year old female Review of Systems Constitutional: Constitutional: Reports no additional constitutional complaints, Denies fatigue, Denies headache(s), Denies lethargy and Denies weakness Eyes: Eyes: Reports no additional eye complaints, Denies blurry vision and Denies photophobia ENT: Reports as per HPI, Denies headache(s) and Denies neck pain Cardiovascular: Cardiovascular: Denies chest pain, Denies diaphoresis, Denies leg edema, Denies palpitations and Denies dyspnea Respiratory: Respiratory: Denies hemoptysis, Denies dyspnea and Denies wheezing Gastrointestinal: Gastrointestinal: Denies abdominal pain, Denies melena, Denies bloating, Denies hematochezia, Denies nausea and Denies vomiting Genitourinary: Genitourinary: Reports no additional female genitourinary complaints Musculoskeletal: Musculoskeletal: Denies joint swelling, Denies neck pain, Denies numbness and Denies stiffness Neurologic: Denies Abnormal speech present, Denies confusion, Denies headache(s), Denies numbness and Denies weakness Psychiatric: Psychiatric: Denies anxiety, Denies confusion, Denies depression, Denies homicidal ideation and Denies suicidal ideation Endocrine: Endocrine: Denies fatigue and Denies palpitations Allergic/Immunologic: Allergic/Immunologic: Denies wheezing PMFSH Past Medical History Medical History Abdominal pain Anxiety Cannabis abuse, daily use Depression Intussusception Hospitalized at [facility] in [place], [place] in early 2020. Leukocytosis Nausea and vomiting in adult Pelvic inflammatory disease Tobacco use Surgical History Surgical History History of exploratory laparotomy Family History Family History Other No known health problems Social History Social History Social History: The patient lives in [place] but frequently stays with her boyfriend in the area. She smokes about half a pack of cigarettes per day and smokes 1 blunt per day. Drink
--- NOTE | 2021-03-21 09:40 | PC.NURSE ---
pt was up in bathroom taking shower, returned to bed requesting morphine for pain also asking for ativan IVP, reviewed that she had ativan this morning and that it is just ordered for twice daily, she then requested xanax, pt states her bladder is not full enough to go for pelvic US
[2021-03-21] MEDS: SODIUM CHLORIDE 0.9% IV 1,000 ML 75 ML IV CONT (09:48)
[2021-03-21] MEDS: ALPRAZolam (*CRX) 0.25 MG TABLET PO (09:53)
--- NOTE | 2021-03-21 11:20 | PC.NURSE ---
called to pt room she is asking to get dose of morphine because it is due at noon, I reviewed with pt that it is only 1118 and it is too early for dose, she is cussing an ranting that we are trying to get her out of here and shouting enough that additional staff members came outside room to see if there was a problem
--- NOTE | 2021-03-21 11:55 | PC.NURSE ---
pt did eat a cup of applesauce and drink a sprite, she tolerated PO intake, did not c/o nausea and no further spitting up, I administered a norco per new orders
[2021-03-21] MEDS: HYDROcodone/acetaminophen (*CRX) 5-325 MG TABLET 1 TAB PO (12:15)
--- NOTE | 2021-03-21 12:30 | PC.NURSE ---
called to pt's room she is requesting to be discharged, I reviewed with pt that provider was not ready to discharge her as she wanted to make sure she could tolerate PO intake and food and that she wanted her to have more than just one small applesauce, pt was upset and cussing and stated order me a chicken noodle soup and some toast and hot chocolate and maybe that will make you all happy, I'm not signing out AMA because I want to get a script for norco, order for food placed with dietary
--- NOTE | 2021-03-21 12:55 | PC.NURSE ---
pt's daughter arrived to room, pt is yelling and cussing that she is not going to stay and wait for food and will just sign the paper and get the fuck out of here. Pt did sign the form and storm out
--- NOTE | 2021-03-21 14:31 | PM.IMPN ---
Progress Note: A&P Assessment and Plan (1) Colitis: Code(s): K52.9 - Noninfective gastroenteritis and colitis, unspecified Status: Acute Assessment and Plan: Pancolitis on imaging, infectious versus inflammatory Continue with antibiotics stool cultures pending GI following, recommendations appreciated Records requested from [facility] for review Continue supportive care with IVF, antiemetics and analgesics as needed S/p EGD and colonoscopy Pt left AMA and refused to adhere to plan of care (2) Adnexal mass: Code(s): N94.89 - Other specified conditions associated with female genital organs and menstrual cycle Status: Acute Assessment and Plan: 4.8 centimeter left adnexal mass noted on CT [employer] consulted, recommendations appreciated Original plan for surgery deferred due to no availability pt advised to f/u o/p (3) Tobacco use: Code(s): Z72.0 - Tobacco use Status: Acute Assessment and Plan: Continue with nicotine patch (4) Cannabis abuse, daily use: Code(s): F12.10 - Cannabis abuse, uncomplicated Status: Acute Assessment and Plan: ?cannabinoid hyperemesis syndrome-->reports cycles of abdominal pain with vomiting, improved with hot showers Cessation advised (5) Anxiety: Code(s): F41.9 - Anxiety disorder, unspecified Status: Acute Assessment and Plan: Will give Xanax prn Pt advised to f/u o/p at d/c Subjective Date/time seen: 03/21/21 14:31 Pt seen and evaluated; continues with N/V; explained to patient that she has to tolerate food prior to discharge; pt was belligerent stated that something is wrong with her stomach and that she will not eat because she'll vomit Review of Systems Review of Systems: All systems reviewed & are unremarkable except as noted in HPI and below Exam Const: General: healthy appearing, comfortable, no acute distress and well developed; No confusion Orientation/consciousness: oriented to person, oriented to place, oriented to time, patient oriented x3 and No confusion HENMT: Head: normocephalic Ears: external ears normal General nose exam: Normal external nose present and Normal nares present Eyes: General: appearance normal, both eyes and all related structures Conjunctivae: conjunctivae normal Direct Ophthalmoscopy: No photophobia Neck: Neck: normal visual inspection, full ROM and no JVD Chest: Chest palpation & inspection: normal inspection of the chest and no tenderness Resp: Effort & Inspection: normal respiratory effort Auscultation: clear to auscultation bilaterally, no rales, no rhonchi and no wheezes Cardio: Rate: regular rate Rhythm: regular rhythm Heart sounds: no click, no murmurs and no rubs GI: Inspection: non-distended Auscultation: normal bowel sounds Skin: General skin exam: normal color and turgor normal Neuro: General: oriented to person, oriented to place, oriented to time, patient oriented x3 and No confusion Cranial nerves: Yes Normal hearing present Cognition (Neuro): normal cognition Speech: normal speech and No Abnormal speech present Motor exam (neuro): Normal motor muscle tone present throughout Extrem: General: normal to inspection, full ROM, no pedal edema and no calf tenderness Psych: Appearance: grossly normal Mental Status: mental status grossly normal Affect: normal affect Objective Data Vital Signs Vital Signs: Vital Signs - 24 hr 03/20/21 20:02 03/21/21 05:35 Temperature 37.1 C 36.4 C Pulse Rate 89 56 L Respiratory Rate 16 16 Blood Pressure 93/48 L 107/57 L Pulse Oximetry 97 95 Intake/Output Intake/Output: Intake & Output 03/18/21 03/19/21 03/20/21 03/21/21 23:59 23:59 23:59 23:59 Intake Total 1440 3330 830 1480 Output Total 475 Balance 1440 2855 830 1480 Meds/Results Radiology Results: ITS Impressions Abdomen/Pelvis CT 03/18/21 14:22 IMPRESSION: 1. Diffuse colonic wall thickening consist
--- NOTE | 2021-03-21 14:48 | PC.NURSE ---
Addendum entered by Malika Roa RN 03/21/21 14:50: time of note should [id number] Original Note: pt got beligerant with provider when she reviewed plan of care and that she was going to advance her diet and discharge her later today due to Dr Whyte suggesting she follow up as an outpt for cysts on ovary
== END 2021-03-21 12:55 | disposition left against medical advice (07) | DRG 245 ==
LOC: ANHED 15:14 → ANH3MED 16:40
PROVIDERS: Emergency Medicine; Internal Medicine Gastroenterology; Nurse Practitioner Adult Health; Physician Assistant; Admitting Provider Family Medicine; Emergency Provider Emergency Medicine; Visit Provider Hospitalist
PROC: 0DJ08ZZ Inspection of Upper Intestinal Tract, Via Natural or Artificial Opening Endoscopic (ICD-10-PCS; CPT 43235; principal; 2021-03-20 12:30)
DX: K51.00 Ulcerative (chronic) pancolitis without complications (principal); K64.8 Other hemorrhoids; R11.2 Nausea with vomiting, unspecified; F12.10 Cannabis abuse, uncomplicated; F41.9 Anxiety disorder, unspecified; F32.9 Major depressive disorder, single episode, unspecified; N94.89 Other specified conditions associated with female genital organs and menstrual cycle; N83.209 Unspecified ovarian cyst, unspecified side; F17.210 Nicotine dependence, cigarettes, uncomplicated
CPT/HCPCS: 36415; 74177; 80048; 80053; 81025; 82274; 83690; 83735; 85025; 85027; 86140; 87015; 87045; 87046; 87177; 87209; 87269; 87272; 87427; 88305; 89055; 93005; 96361; 96365; 96366; 96367; 96372; 96375; 96376; 99285; A9270; G0378; J0500; J0744; J1885; J2060; J2270; J2405; J2543; J2704; J2765; J7030; J7120; Q9967

== ENCOUNTER 2021-08-20 18:16 | Emergency (ER) | payer MEDICAID, SELFPAY ==
[2021-08-20] VITALS (15 sets, daily range): BP systolic 110–156; BP diastolic 71–142; PULSE 61–105; RESP 9–23; TEMP 36.7; O2SAT 97–100
--- NOTE | ~2021-08-20 | CT_ITS ---
EXAMINATION: CT abdomen pelvis w con DATE: 08/20/2021 21:54 INDICATION: 2 days of right lower quadrant abdominal pain TECHNIQUE: Computed tomography (CT) of the abdomen and pelvis was performed with 100 mL Omnipaque-350 intravenous contrast. Automated exposure control and iterative reconstruction technique were employe d. The dose-length product was 288.75 mGy-cm. COMPARISON: 03/18/2021 FINDINGS: Lung bases are clear. Visual is inferior heart is normal. No pericardial or pleural effusion. Mild fo amanda hepatic steatosis at the ligamentum teres. Gallbladder, pancreas, spleen, bilateral adrenal gland s and kidneys are normal. There is mild wall thickening of the distal colon beginning at the splenic flexure consistent with colitis. There is fluid in the more proximal colon consistent with diarrhea. Small bowel anastomosis in the right lower quadrant. No bowel obstruction. Suture line at the tip the cecum likely related to prior appendectomy. 5.2 cm right adnexal cyst. The prior left adnexal cyst h as resolved. Bladder and anteverted uterus are normal. No free intraperitoneal gas or fluid. No patho logically enlarged abdominal or pelvic lymphadenopathy. Bones are unremarkable. IMPRESSION: 1. Mild wall thickening along the distal colon consistent with a mild colitis which could be infectio us or inflammatory in etiology. 2. 5.2 cm right adnexal cyst. Reviewed, dictated and finalized at location A. IMPRESSION: 1. Mild wall thickening along the distal colon consistent with a mild colitis w hich could be infectious or inflammatory in etiology. 2. 5.2 cm right adnexal cyst.
[2021-08-20 18:46] LABS: Basophils Percent Auto 0.2 % (0.2-1.2); Eosinophils Absolute Auto 0.1 K/mm3 (0-0.3); Eosinophils Percent Auto 0.4 % (0-4.4); Hematocrit 43.3 % (37.0-47.0); Hemoglobin 14.5 g/dL (12.0-15.0); Immature Granulocyte Absolute 0.04 K/mm3 (0.00-0.031); Immature Granulocyte Percent A 0.3 % (0-0.5); Lymphocytes Absolute Auto 3.38 K/mm3 (0.9-3.2); Lymphocytes Percent Auto 23.9 % (18.3-44.2); Mean Corpuscular HGB Conc 33.5 g/dl (32-36); Mean Corpuscular Hemoglobin 31.1 pg (26-34); Mean Corpuscular Volume 92.9 fl (80-100); Mean Platelet Volume 9.2 fl (7.4-10.4); Monocytes Absolute Auto 1.4 K/mm3 (0.1-0.6); Monocytes Percent Auto 9.8 % (2.6-8.5); Neutrophils Absolute Auto 9.3 K/mm3 (1.3-6.7); Neutrophils Percent Auto 65.4 % (45.5-73.1); Platelet Count Result 367 k/mm3 (150-375); Red Blood Count 4.66 M/mm3 (4.2-5.4); Red Cell Distribution Width 15.3 % (11.5-14.5); White Blood Count 14.2 K/mm3 (4.5-10.0)
[2021-08-20 18:58] LABS: Alanine Aminotransferase 29 U/L (4-35); Albumin Level 5.3 g/dL (3.5-5.1); Alkaline Phosphatase 82 U/L (38-126); Anion Gap 8 mmol/L (8-16); Aspartate Amino Transferase 34 U/L (14-36); Bilirubin,Total 0.5 mg/dL (0.2-1.3); Blood Urea Nitrogen 15 mg/dL (7-17); Calcium 9.4 mg/dL (8.4-10.2); Carbon Dioxide 28 mmol/L (22-30); Chloride 102 mmol/L (98-107); Estimated CRCL calculation 74 ml/min; Estimated Glomerular Filt Rate > 60; Glucose 92 mg/dL (65-110); Lipase 327 U/L (23-300); Potassium 4.2 mmol/L (3.4-5.0); Sodium 138 mmol/L (137-145)
[2021-08-20 19:04] LABS: Add Urine Microscopic? YES; Appearance Urine Clear (Clear); Bilirubin Urine Negative (Negative); Blood Urine Negative (Negative); Color Urine Yellow (Yellow); Glucose Urine UA Negative (Negative); Ketones Urine Negative (Negative); Leukocyte Esterase Ur Trace LEU/UL (Negative); Mucus Urine Rare /lpf; Nitrate Urine Negative (Negative); Protein Urine Negative (Negative); Specific Grav Ur 1.019 (1.001-1.035); Squamous Epithelial Cell Urine Rare /hpf (Few); Urobilinogen Urine Negative mg/dL (<2.0)
--- NOTE | 2021-08-20 21:35 | ED.ABDPAIN ---
HPI - Abdominal Pain General Chief Complaint: Abdominal Pain Stated Complaint: Abd Pain - bloody stool Time Seen by Provider: 08/20/21 21:11 Source: patient Mode of arrival: ambulatory Limitations: no limitations History of Present Illness HPI narrative: Patient is a 36-year-old female complaining of right lower quadrant pain, 6 out of 10, sharp, nonradiating started 2 days ago. Patient also states that she has had bloody mucus in her stools. Patient denies any chest pain, shortness of breath, nausea, vomiting, diarrhea, fever or chills. Patient denies any urinary symptoms. Related Data Home Medications Medication Instructions Recorded Confirmed trazodone 150 mg HS 03/18/21 03/18/21 Allergies Allergy/AdvReac Type Severity Reaction Status Date / Time No Known Allergies Allergy Verified 03/18/21 17:45 Review of Systems Review of Systems: All systems reviewed & are unremarkable except as noted in HPI and below Constitutional: Constitutional: Denies body ache(s), Denies chills, Denies excessive sweating, Denies fatigue, Denies fever(s), Denies headache(s), Denies lethargy, Denies malaise, Denies weakness and Denies weight loss Eyes: Eyes: Denies blurry vision, Denies change in vision and Denies loss of vision ENT: Denies dizziness, Denies ear discharge, Denies headache(s), Denies lip swelling, Denies epistaxis, Denies nasal congestion, Denies neck pain, Denies throat swelling and Denies tongue swelling Cardiovascular: Cardiovascular: Denies chest pain, Denies chest pain at rest, Denies chest pain with activity, Denies diaphoresis, Denies rapid heart rate, Denies edema, Denies irregular heart rhythm, Denies lightheadedness, Denies palpitations, Denies dyspnea and Denies dyspnea on exertion Respiratory: Respiratory: Denies chest congestion, Denies cough, Denies hemoptysis, Denies dyspnea and Denies dyspnea on exertion Gastrointestinal: Gastrointestinal: Denies melena, Denies nausea, Denies vomiting and Denies hematemesis Musculoskeletal: Musculoskeletal: Denies abnormal gait, Denies deformity, Denies joint swelling, Denies limited range of motion, Denies neck pain and Denies numbness Neurologic: Denies Abnormal speech present, Denies abnormal gait, Denies confusion, Denies dizziness, Denies headache(s), Denies focal weakness, Denies loss of vision, Denies numbness, Denies Other visual disturbances, Denies Sensory deficit (Neuro) and Denies weakness Psychiatric: Psychiatric: Denies confusion, Denies depression, Denies auditory hallucinations, Denies homicidal ideation and Denies suicidal ideation Endocrine: Endocrine: Denies cold intolerance, Denies excessive sweating, Denies fatigue, Denies heat intolerance and Denies palpitations Hematologic/Lymphatic: Hematologic/Lymphatic: Denies easy bleeding and Denies easy bruising Allergic/Immunologic: Allergic/Immunologic: Denies lip swelling, Denies throat swelling and Denies tongue swelling PMFSH Past Medical History Medical History Abdominal pain Anxiety Cannabis abuse, daily use Depression Intussusception Hospitalized at [facility] in [place], [place] in early 2020. Leukocytosis Nausea and vomiting in adult Pelvic inflammatory disease Tobacco use Surgical History Surgical History History of exploratory laparotomy Family History Family History Other No known health problems Social History Social History Social History: The patient lives in [place] but frequently stays with her boyfriend in the area. She smokes about half a pack of cigarettes per day and smokes 1 blunt per day. Drinks perhaps 2 alcoholic beverages a week. No illicit substance use. Formally abused prescription pain medication. Exam Const: General: cooperative, healthy appearing, comfortable, no acute dis
--- NOTE | 2021-08-20 23:06 | PC.NURSE ---
This nurse went in to administer IVP toradol dose, patient refused dose stating that she is allergic to some type of anti inflammatory. This nurse attempted to go over allergies with patient, patient states that her allergies should already be on file.
== END 2021-08-21 01:25 | disposition left against medical advice (07) ==
PROVIDERS: Emergency Medicine; Emergency Provider Emergency Medicine
DX: K52.9 Noninfective gastroenteritis and colitis, unspecified (principal); F17.210 Nicotine dependence, cigarettes, uncomplicated; F41.9 Anxiety disorder, unspecified; F32.9 Major depressive disorder, single episode, unspecified
CPT/HCPCS: 36415; 74177; 80053; 81001; 81025; 83690; 85025; 87077; 87086; 87088; 99284; J1885; Q9967